=== PATIENT | female | born 1985 | race Caucasian/White ===

== ENCOUNTER 2017-06-29 23:51 | Emergency (ER) | payer MEDICAID ==
[~2017-06-29] VITALS: Ht 157.5 cm; Wt 69.5 kg
[~2017-06-29 23:51] MED LIST: BUPR1TAB2 SL; FAMO-1 PO; HYDR-565 PO; HYDR473S49 PO; ONDA4TAB59 PO; ONDA8TAB6 PO; PROM25TA14 PO
[2017-06-30 00:03] VITALS: BP 107/66
[2017-06-30] MEDS ORDERED: dexamethasone sod phosphate 10mg/ml inj IV STA (01:09)
[2017-06-30] MEDS ORDERED: normal saline 1000ml 1,000 ML IV ONE (01:10)
[2017-06-30] MEDS ORDERED: ketorolac trometh. 30mg/ml inj. IV ONE (01:10)
[2017-06-30] MEDS ORDERED: LORazepam 2 mg/ml vial IV ONE (01:45)
[2017-06-30] MEDS ORDERED: iohexol 300mg/ml 100ml inj. ONE (01:58)
[2017-06-30 02:12] LABS: BASOPHILS # (AUTO) 0.1 X10'3 (0-0.2); BASOPHILS % (AUTO) 0.4 % (0-1); EOSINOPHILS # (AUTO) 0.4 X10'3 (0-0.9); EOSINOPHILS % (AUTO) 3.2 % (0-6); HEMATOCRIT 37.2 % (35.0-45.0); HEMOGLOBIN 12.7 g/dl (12.0-16.0); LYMPHOCYTES # (AUTO) 3.6 X10'3 (1.1-4.8); LYMPHOCYTES % (AUTO) 31.1 % (21-51); MEAN CORPUSCULAR HEMOGLOBIN 32.1 PG (27.0-31.0); MEAN CORPUSCULAR HGB CONC 34.2 % (33.0-36.5); MEAN CORPUSCULAR VOLUME 93.9 FL (78-98); MEAN PLATELET VOLUME 7.4 FL (7.4-10.4); MONOCYTES # (AUTO) 0.6 X10'3 (0-0.9); MONOCYTES % (AUTO) 5.5 % (2-12); NEUTROPHILS % (AUTO) 59.8 % (42-75); PLATELET COUNT 324 X10'3 (140-440); RED BLOOD COUNT 3.96 X10'6 (4.20-5.60); RED CELL DISTRIBUTION WIDTH 13.4 % (11.5-14.5); WHITE BLOOD COUNT 11.7 X10'3 (4.5-11.0)
[2017-06-30 02:14] LABS: ALANINE AMINOTRANSFERASE 24 U/L (12-78); ALBUMIN 3.5 G/DL (3.4-5.0); ALBUMIN/GLOBULIN RATIO 1.1 (1.1-1.5); ALKALINE PHOSPHATASE 44 IU/L (46-116); ANION GAP 5 (8-16); ASPARTATE AMINO TRANSFERASE 15 U/L (10-37); BILIRUBIN,TOTAL 0.2 MG/DL (0.1-1.0); BLOOD UREA NITROGEN 4 MG/DL (7-18); BUN/CREATININE RATIO 6.7 (6.6-38.0); CALCIUM 8.2 MG/DL (8.5-10.1); CHLORIDE 110 MMOL/L (99-107); GLUCOSE 86 MG/DL (70-104); POTASSIUM 4.1 MMOL/L (3.5-5.1); SODIUM 141 MMOL/L (135-145); TOTAL CARBON DIOXIDE 26.4 MMOL/L (24-32); TOTAL PROTEIN 6.8 G/DL (6.4-8.2); eGFR > 90 ML/MIN
[2017-06-30] MEDS ORDERED: HYDR-3965 PO (03:40)
== END 2017-06-30 03:49 | disposition home or self-care (01) ==
LOC: ER 23:51
DX: J02.9 Acute pharyngitis, unspecified (principal); F32.9 Major depressive disorder, single episode, unspecified; Z88.2 Allergy status to sulfonamides; Z88.5 Allergy status to narcotic agent; Z91.041 Radiographic dye allergy status; Z91.040 Latex allergy status; Z91.013 Allergy to seafood; Z98.51 Tubal ligation status
CPT/HCPCS: 36415; 70491; 80053; 85025; 96361; 96374; 96375; 99285; J1100; J1885; J7030; Q9967

== ENCOUNTER 2018-10-06 14:16 | Emergency (ER) | payer MEDICAID ==
[~2018-10-06] VITALS: Ht 157.5 cm; Wt 68.2 kg
[~2018-10-06 14:16] MED LIST changes: +HYDR-4353 PO; -HYDR-565 PO
[2018-10-06 14:41] VITALS: BP 101/57
[2018-10-06] MEDS ORDERED: ESCI20TA PO (15:27)
== END 2018-10-06 15:52 | disposition home or self-care (01) ==
LOC: ER 14:17
DX: F32.9 Major depressive disorder, single episode, unspecified (principal); Z76.0 Encounter for issue of repeat prescription; G89.29 Other chronic pain; Z98.51 Tubal ligation status; Z88.2 Allergy status to sulfonamides; Z88.8 Allergy status to other drugs, medicaments and biological substances; Z88.6 Allergy status to analgesic agent; Z91.040 Latex allergy status
CPT/HCPCS: 99283

== ENCOUNTER 2019-06-10 06:28 | Emergency (ER) | payer MEDICAID ==
[~2019-06-10] VITALS: Ht 157.5 cm; Wt 68.2 kg
[~2019-06-10 06:28] MED LIST changes: +ESCI20TA PO
[2019-06-10 06:29] VITALS: BP 117/67
[2019-06-10] MEDS ORDERED: BUPIVAcaine/PF 2.5 mg/ml (0.25%) 30ml vial IJ ONE (06:55)
[2019-06-10] MEDS ORDERED: BUPIVAcaine/PF 2.5mg/ml (0.25%) 10ml vial IJ ONE (06:55)
[2019-06-10] MEDS ORDERED: ketorolac trometh inj. 60 MG/2 ML VIAL IM ONE (06:55)
[2019-06-10] MEDS ORDERED: IBUP-1984 PO (07:46)
[2019-06-10] MEDS ORDERED: CYCL-1 PO (07:46)
== END 2019-06-10 08:25 | disposition home or self-care (01) ==
LOC: ER 06:29
DX: M54.12 Radiculopathy, cervical region (principal); M25.511 Pain in right shoulder; G89.29 Other chronic pain; F32.9 Major depressive disorder, single episode, unspecified; Z90.49 Acquired absence of other specified parts of digestive tract; Z98.890 Other specified postprocedural states; Z98.51 Tubal ligation status; Z88.2 Allergy status to sulfonamides; Z88.6 Allergy status to analgesic agent; Z91.040 Latex allergy status; Z88.5 Allergy status to narcotic agent; Z79.899 Other long term (current) drug therapy
CPT/HCPCS: 20552; 99284; J1885; J3490